=== PATIENT | female | born 1935 | race Caucasian/White ===

== ENCOUNTER → 2017-03-28 | Outpatient (CLI) | payer MEDICARE, MEDICAID ==
[~2017-03-28] MED LIST: A/B OTIC15 ML; CETIRIZINE10 M1 PO; CYMBALTA30 M1 PO; EVISTA60 MG PO; LEVAQUIN750 MG PO; MEDDP PO; PREDNISONE1 MG PO; PROPRANOLOL HC120 MG PO; PROTONIX20 MG PO
== END | disposition home or self-care (01) ==
LOC: RD 13:37
DX: M25.512 Pain in left shoulder (principal)